=== PATIENT | male | born 1985 | race Caucasian/White ===

== ENCOUNTER 2017-02-09 08:45 | Emergency (ER) | payer BC ==
[~2017-02-09] VITALS: Ht 180.3 cm; Wt 80.7 kg
[2017-02-09] MEDS ORDERED: ACETAMINOPHEN 500 MG TABLET PO ONE (09:15)
[2017-02-09] MEDS ORDERED: ONDANSETRON PF 4 MG/2 ML VIAL. IV ONE (09:15)
[2017-02-09] MEDS ORDERED: IV NORMAL SALINE 1000ML BAG 1,000 ML IV ONE (09:15)
--- NOTE | 2017-02-09 09:20 | PHYS DOC ---
Adult General Chief Complaint Chief Complaint: FEVER HPI HPI Patient is a 31 year old male with history of asthma who presents today complaining of fevers on and off for the last 2 weeks. Patient is also complaining of nausea vomiting, diarrhea and generalized abd pain that began a couple days ago. Patient states initially he developed a fever 2 weeks ago. He states he had a cough with it. He states he was seen by the PCP and was diagnosed with possible pneumonia and was put on antibiotics. He states his symptoms did not improve. He states he went to urgent care on Wednesday this week for the same complaint. He states he put him on azithromycin. He states his symptoms have not improved. He states he also has a slight headache generalized in nature. Patient denies this being the worst headache in his life. Patient is also complaining of fatigue for the last 2 weeks. Patient denies any sore throat. Patient states he took an antiepileptic last night. He is also complaining of generalized malaise and neck pain for the last couple days. He states his neck pain is from him laying down in the bed for couple days. Review of Systems Review of Systems Constitutional: Fever and fatigue Eyes: Denies change in visual acuity, redness, or eye pain [] HENT: Denies nasal congestion or sore throat [] Respiratory: Denies cough or shortness of breath [] Cardiovascular: No additional information not addressed in HPI [] GI: abdominal pain, nausea, diarrhea [] : Denies dysuria or hematuria [] Musculoskeletal: Denies back pain or joint pain [] Integument: Denies rash or skin lesions [] Neurologic: headache Endocrine: Denies polyuria or polydipsia [] Current Medications Current Medications Current Medications Medications (Trade) Dose Ordered Sig/Eloisa Start Time Stop Time Status Last Admin Dose Admin Acetaminophen (Tylenol) 1,000 mg 1X ONCE 02/09/17 09:15 02/09/17 09:19 DC 02/09/17 09:25 1,000 MG Info (Do NOT chart on this entry -- for MONITORING) 1 each PRN DAILY PRN 02/09/17 13:00 02/11/17 12:59 Iohexol (Omnipaque 300 Mg/ml) 75 ml 1X ONCE 02/09/17 13:00 02/09/17 13:01 DC 02/09/17 12:57 75 ML Ondansetron HCl (Zofran) 4 mg 1X ONCE 02/09/17 09:15 02/09/17 09:19 DC 02/09/17 09:24 4 MG Sodium Chloride (Iv Sodium Chloride 0.9% 1000ml Bag) 1,000 ml @ 1,000 mls/hr 1X ONCE 02/09/17 09:15 02/09/17 10:14 DC 02/09/17 09:24 1,000 MLS/HR Allergies Allergies Allergies Coded Allergies Type Severity Reaction Last Updated Verified No Known Drug Allergies 02/09/17 No Physical Exam Physical Exam Constitutional: Well developed, well nourished, no acute distress, non-toxic appearance. [] HENT: Normocephalic, atraumatic, bilateral external ears normal, oropharynx moist, no oral exudates, nose normal. [] Eyes: PERRLA, EOMI, conjunctiva normal, no discharge. [] Neck: Normal range of motion, no tenderness, supple, no stridor. [] Cardiovascular:Heart rate regular rhythm, no murmur [] Lungs & Thorax: Bilateral breath sounds clear to auscultation [] Abdomen: Bowel sounds normal, soft, no tenderness, no masses, no pulsatile masses. [] Skin: Warm, dry, no erythema, no rash. [] Back: No tenderness, no CVA tenderness. [] Extremities: No tenderness, no cyanosis, no clubbing, ROM intact, no edema. [] Neurologic: Alert and oriented X 3, normal motor function, normal sensory function, no focal deficits noted. [] Psychologic: Affect normal, judgement normal, mood normal. [] Current Patient Data Vital Signs Vital Signs Date Time Temp Pulse Resp B/P Pulse Ox O2 Delivery O2 Flow Rate FiO2 02/09/17 09:50 74 18 134/72 95 Room Air 02/09/17 09:00 99.5 99.5 Lab Values Laboratory Tests Test 02/09/17 09:14 02/09/17 11:47 02/09/17 11:50 02/09/17 12:14 White Blood Count 6.5x10^3/uL (4.0-11.0) Red Blood Count 5.10x10^6/uL (4.30-5.70) Hemoglobin 14.8g/dL (13.0-17.5) Hematocrit 42.0% (39.0-53.0) Mean Corpuscular Volume 82fL (79-100) Mean Corpuscular Hemoglobin 29pg (25-35) Mean Corpuscular Hemoglobin Concent 35g/dL (31-37) Red Cell Distribution Width 12.0% (11.5-14.5) Platelet Count 189x10^3/uL (140-400) Neutrophils (%) (Auto) 50% (31-73) Lymphocytes (%) (Auto) 37% (24-48) Monocytes (%) (Auto) 11% (0-9) H Eosinophils (%) (Auto) 2% (0-3) Basophils (%) (Auto) 1% (0-3) Neutrophils # (Auto) 3.2x10^3uL (1.8-7.7) Lymphocytes # (Auto) 2.4x10^3/uL (1.0-4.8) Monocytes # (Auto) 0.7x10^3/uL (0.0-1.1) Eosinophils # (Auto) 0.1x10^3/uL (0.0-0.7) Basophils # (Auto) 0.0x10^3/uL (0.0-0.2) Prothrombin Time 13.2SEC (11.7-14.0) Prothrombin Time INR 1.1 (0.8-1.1) PTT 36SEC (24-38) Sodium Level 135mmol/L (136-145) L Potassium Level 3.8mmol/L (3.5-5.1) Chloride Level 97mmol/L (98-107) L Carbon Dioxide Level 29mmol/L (21-32) Anion Gap 9 (6-14) Blood Urea Nitrogen 8mg/dL (8-26) Creatinine 1.2mg/dL (0.7-1.3) Estimated GFR (Cockcroft-Gault) 71.6 BUN/Creatinine Ratio 7 (6-20) Glucose Level 101mg/dL (70-99) H Calcium Level 9.0mg/dL (8.5-10.1) Total Bilirubin 0.9mg/dL (0.2-1.0) Aspartate Amino Transferase (AST) 69U/L (15-37) H Alanine Aminotransferase (ALT) 102U/L (16-63) H Alkaline Phosphatase 71U/L (46-116) Total Protein 8.2g/dL (6.4-8.2) Albumin 3.5g/dL (3.4-5.0) Albumin/Globulin Ratio 0.7 (1.0-1.7) L Lipase 111U/L (73-393) Heterophil Agglutinins Negative (NEGATIVE) Influenza Type A Antigen Negative (NEGATIVE) Influenza Type B Antigen Negative (NEGATIVE) Group A Streptococcus Rapid Negative (NEGATIVE) Urine Collection Type Unknown Urine Color Yellow Urine Clarity Clear Urine pH 5.5 Urine Specific Tolar 1.015 Urine Protein Negativemg/dL (NEG-TRACE) Urine Glucose (UA) Negativemg/dL (NEG) Urine Ketones (Stick) 15mg/dL (NEG) Urine Blood Negative (NEG) Urine Nitrite Negative (NEG) Urine Bilirubin Negative (NEG) Urine Urobilinogen Dipstick 0.2mg/dL (0.2 mg/dL) Urine Leukocyte Esterase Trace (NEG) Urine RBC 0/HPF (0-2) Urine WBC 0/HPF (0-4) Urine Squamous Epithelial Cells Few/LPF Urine Bacteria 0/HPF (0-FEW) Urine Mucus Mod/LPF Laboratory Tests 02/09/17 09:14 Laboratory Tests 02/09/17 09:14 EKG EKG [] Radiology/Procedures Radiology/Procedures [] Course & Med Decision Making Course & Med Decision Making Pertinent Labs and Imaging studies reviewed. (See chart for details) This is a well-appearing 31 year old male patient who presents to the ED with complaints of fever intermittently for 2 weeks. Patient is on his second round of antibiotics which she received from urgent care on Wednesday. He is already been seen by the primary care doctor and took antibiotics a week ago. Patient's also complaining of coughing. Patient's also complaining of vomiting and diarrhea. He is also complaining of generalized abdominal pain. CBC with no acute findings, CMP with AST of 69 and ALT of 102. Urine analysis is negative for infection. On arrival his temperature was 99.5. He was given antipyretic. Negative influenza A or B, negative strep infection. Negative for mono. Chest x- ray was negative for any acute findings. CT of the abdomen and pelvic was negative for any acute findings but noted for splenomegaly. Patient was cautioned not to participate in any contact sports. Recommended he follows up with the PCP in a week. Provided return precautions and discharged in stable condition. Dragon Disclaimer Dragon Disclaimer This electronic medical record was generated, in whole or in part, using a voice recognition dictation system. Departure Departure Impression: Primary Impression: Fever of unknown origin Additional Impressions: Cough Nausea and vomiting Diarrhea Disposition: 01 HOME, SELF-CARE Condition: STABLE Patient Instructions: Diarrhea, Fever, Child, Nausea and Vomiting Additional Instructions: You were seen for ongoing fevers. We were not able to find the actual cause for the fever. Please take ibuprofen as needed for fever. Your liver enzymes are slightly elevated and this could come from taking Tylenol. Avoid taking Tylenol. Follow-up with your primary care doctor in the next 2-3 days. Come back to the ED if symptoms worsen. Scripts Ondansetron (Zofran Odt)4 Mg Tab.rapdis1 Tab SL Q8HRS #15 TAB Prov:INÉS ESPITIA APRN 02/09/17 Problem Qualifiers Additional Impressions: Nausea and vomiting Vomiting type: unspecified Vomiting Intractability: unspecified Qualified Code: R11.2 - Nausea with vomiting, unspecified Diarrhea Diarrhea type: unspecified type Qualified Code: R19.7 - Diarrhea, unspecified INÉS ESPITIA APRN Feb 09, 2017 09:20
[2017-02-09 09:38] LABS: BASO % 1 % (0-3); EOS % 2 % (0-3); HEMOGLOBIN 14.8 g/dL (13.0-17.5); LYMPH # 2.4 x10^3/uL (1.0-4.8); LYMPH % 37 % (24-48); MEAN CORPUSCULAR HEMOGLOBIN 29 pg (25-35); MEAN CORPUSCULAR HGB CONC 35 g/dL (31-37); MEAN CORPUSCULAR VOLUME 82 fL (79-100); MONO % 11 % (0-9); NEUT % 50 % (31-73); PLATELET COUNT 189 x10^3/uL (140-400); WHITE BLOOD COUNT 6.5 x10^3/uL (4.0-11.0)
[2017-02-09 09:40] LABS: CREATININE 1.2 mg/dL (0.7-1.3); GFR 71.6; POTASSIUM 3.8 mmol/L (3.5-5.1)
[2017-02-09 09:42] LABS: ALBUMIN 3.5 g/dL (3.4-5.0); ALBUMIN/GLOBULIN RATIO 0.7 (1.0-1.7); TOTAL BILIRUBIN 0.9 mg/dL (0.2-1.0); TOTAL PROTEIN 8.2 g/dL (6.4-8.2)
[2017-02-09 09:54] LABS: NEGATIVE OBC MONO NEG; POSITIVE OBC MONO POS
[2017-02-09 09:55] LABS: INR 1.1 (0.8-1.1); PROTHROMBIN TIME PATIENT 13.2 SEC (11.7-14.0)
--- NOTE | 2017-02-09 10:17 | ACF ---
Admit Criteria Forms Admit Criteria Forms Admit Criteria Forms FEVER Clinical Indications for Inpatient Care (Place 'X' for any and all applicable criteria): Ongoing inpatient care may be indicated for fever with ANY ONE of the following[ D] (5)(27)(28)(29)(30)(31): [ ]I. Bacteremia [ ]II. Evidence of significant systemic illness as indicated by ANY ONE of the following: [ ]a) Persistently high temperatures greater than 103.1 degrees F ( 39.5 degrees C) (oral) [ ]b) New-onset hypoxia [ ]c) Hemodynamic instability [ ]d) Mental status changes [ ]e) Decreased urine output due to developing renal insufficiency [ ]f) New focal neurologic deficit (eg, stroke) [ ]g) Seizures [ ]h) Rigors [ ]i) Dehydration or hypovolemia [ ]j) Inadequate oral intake [X]III. Patient in the immediate postoperative period with ANY ONE of the following (E)(23)(24): [ ]a) Evidence of specific localizing infection requiring ongoing inpatient evaluation or treatment (eg,abscess, severe pneumonia, wound infection ) [X]b) Known or suspected cause of fever requiring ongoing inpatient evaluation or treatment (eg, DVT) [ ]c) Evidence of malignant hyperthermia (eg, unexplained tachycardia and muscle rigidity after depolarizing muscular blocking agent or inhaled anesthetic agent) [ ]IV. Suspected cause requiring acute care (eg, endocarditis, meningitis) [ ]V. High suspicion of bacteremia as indicated by severe constitutional symptoms in patient at high risk as indicated by ANY ONE of the following: [ ]a) Immunocompromised state [D](22) [ ]b) Age <3 years or >65 years [ ]c) Severe comorbidities (eg, poorly controlled diabetes, severe COPD) [ ]. High suspicion for fungal infection as indicated by ANY ONE of the following (22)(25): [ ]a) Febrile neutropenia (WBC <500/mm3 (0.5 X 109/L)) for >4 days despite broad spectrum antibiotics [ ]b) Imaging findings suggestive of fungal infection [ ]c) Immunocompromised state [ ]d) Immunocompromised patient colonized with Aspergillus species [ ]VII. Evidence of infection of medical devices such as implanted catheters or exposed hardware [ ]VIII. Suspected neuroleptic malignant syndrome as evidenced by ALL of the following (15): [ ]a) Recent use of neuroleptic medication (eg, haloperidol, prochlorperazine, metoclopramide) [ ]b) New-onset muscle rigidity Extended stay beyond goal length of stay for primary condition may be needed until ALL of the following are present(16)(17)(18)(19)(20)(21): [ ]a) Temperature status acceptable as indicated by ANY ONE of the following: [ ]i) Temp <38.1C (100.5 F) (oral) [ ]ii) Temp as expected for disease process and care performable at next level of care [ ]b) Hemodynamic stability [ ]c) Cultures negative or infection identified and under adequate treatment [ ]d) Behavior or mental status abnormalities absent or manageable at lower level of care (Also use Mental Status Change Criteria Form) for further information. [ ]e) Medical comorbidities absent or manageable at a lower level of care The original [facility] content created by [employer] has been revised. The portions of the content which have been revised are identified through the use of italic text or in bold, and [facility] has neither reviewed nor approved the modified material. All other unmodified content is copyright [facility]. Please see references footnoted in the original [facility] edition 2016 BJ PIERRE Feb 09, 2017 10:17
--- NOTE | 2017-02-09 10:59 | RAD ---
Exam: PA and lateral chest radiograph History: Fever for 2 weeks, cough. Comparison: None. Findings: Cardiomediastinal silhouette is within normal limits for size. Bilateral lung padron are free of focal infiltrate. No pleural effusion is seen. Impression: No acute cardiopulmonary process.
[2017-02-09 12:17] LABS: OBC FLU VALID
[2017-02-09 12:29] LABS: NEGATIVE OBC STREP NEG; POSITIVE OBC STREP POS
[2017-02-09 12:36] LABS: BACTERIA,URINE 0 /HPF (0-FEW); BILIRUBIN,URINE NEGATIVE (NEG); GLUCOSE,URINE NEGATIVE (NEG); NITRITE,URINE NEGATIVE (NEG); PH,URINE 5.5; PROTEIN,URINE NEGATIVE (NEG-TRACE); RBC,URINE 0 /HPF (0-2); SQUAMOUS EPITHELIAL CELL,UR FEW /LPF; UROBILINOGEN,URINE 0.2 mg/dL (0.2 mg/dL); WBC,URINE 0 /HPF (0-4)
[2017-02-09] MEDS ORDERED: CONTRAST GIVEN MC PRN (13:00)
[2017-02-09] MEDS ORDERED: IOHEXOL 300 MG/ML 75 ML VIAL IV ONE (13:00)
--- NOTE | 2017-02-09 14:04 | RAD ---
CT abdomen and pelvis with IV contrast History: Nausea, vomiting, abdominal pain, fever. Comparison: None. Technique: After administration of intravenous contrast, 75 mL Omnipaque 300, helical CT of the abdomen and pelvis was performed from the lung bases through the ischial tuberosities. Axial, sagittal, and coronal reconstructions were obtained. One or more of the following individualized dose reduction techniques were utilized for the study: Automated exposure control Adjustment of mA and/or kV according to patient's size Use of iterative reconstruction technique. Findings: Evaluation of enteric structures may be limited by lack of oral contrast. Fatty liver disease is seen. Spleen is enlarged measuring 15.0 cm in craniocaudal dimension. Pancreas, gallbladder, and bilateral adrenal glands are unremarkable. Bilateral kidneys enhance symmetrically. There is no evidence of bowel obstruction. No free air or free fluid is identified in the abdomen or pelvis. Appendix appears within normal limits. Urinary bladder is unremarkable. Impression: 1. No acute abnormality identified in the abdomen or pelvis. 2. Splenomegaly.
[2017-02-09 14:30] VITALS: BP 130/78
[2017-02-09] MEDS ORDERED: ONDA4TAB10 SL (14:48)
== END 2017-02-09 14:52 | disposition home or self-care (01) ==
LOC: ER 08:45
DX: R50.9 Fever, unspecified (principal); R11.2 Nausea with vomiting, unspecified; R19.7 Diarrhea, unspecified; R05 Cough; M54.2 Cervicalgia; R10.84 Generalized abdominal pain; J45.909 Unspecified asthma, uncomplicated; R53.83 Other fatigue; R16.1 Splenomegaly, not elsewhere classified
CPT/HCPCS: 36415; 71020; 74177; 80053; 81001; 83690; 85027; 85610; 85730; 86308; 87040; 87070; 87804; 87880; 96361; 96374; 99285; J2405; J7030; Q9967

== ENCOUNTER 2020-09-21 10:20 | Emergency (ER) | payer BC, OTHER ==
[~2020-09-21] VITALS: Ht 180.3 cm; Wt 73.0 kg
[~2020-09-21 10:20] MED LIST: ONDA4TAB10 SL
[2020-09-21] MEDS ORDERED: IV NORMAL SALINE 1000ML BAG 1,000 ML IV SCH (10:45)
[2020-09-21] MEDS ORDERED: ONDANSETRON PF 4 MG/2 ML VIAL. IVP ONE (10:45)
[2020-09-21 11:04] LABS: BASO % 1 % (0-3); EOS # 0.1 x10^3/uL (0.0-0.7); EOS % 1 % (0-3); HEMATOCRIT 47.3 % (39.0-53.0); HEMOGLOBIN 16.2 g/dL (13.0-17.5); LYMPH # 1.6 x10^3/uL (1.0-4.8); LYMPH % 26 % (24-48); MEAN CORPUSCULAR HEMOGLOBIN 30 pg (25-35); MEAN CORPUSCULAR HGB CONC 34 g/dL (31-37); MEAN CORPUSCULAR VOLUME 87 fL (79-100); MONO # 0.6 x10^3/uL (0.0-1.1); MONO % 10 % (0-9); NEUT # 3.9 x10^3/uL (1.8-7.7); NEUT % 63 % (31-73); PLATELET COUNT 204 x10^3/uL (140-400); RED BLOOD COUNT 5.42 x10^6/uL (4.30-5.70); RED CELL DISTRIBUTION WIDTH 12.8 % (11.5-14.5); WHITE BLOOD COUNT 6.2 x10^3/uL (4.0-11.0)
[2020-09-21 12:00] VITALS: BP 162/100
--- NOTE | 2020-09-21 12:10 | PHYS DOC ---
Past Medical History Past Medical History: Anxiety, Asthma, Hypertension Additional Past Medical Histor: Has not used an inhaler, "In years." Past Surgical History: No Surgical History Smoking Status: Never Smoker Alcohol Use: Heavy Additional Information: PT STATES HE DRINKS HEAVILY DAILY, 12 PK OF BEER PER DAY OR "THE EQUIVILANT" IN [place]QU[place]. Drug Use: None General Adult EDM: Chief Complaint: NAUSEA/VOMITING/DIARRHA HPI: HPI: Patient is a 35 year old male who presented to ER for evaluation of epigastric abdominal pain associate with nausea vomiting for the last 6 days. Patient is an alcoholic, he has tried to stop drinking 2 days ago. He did not feel so well last night so he start drinking again last night. Patient complained of cramping all over. Patient denies any diarrhea, no fever, no chest pain, no cough. Review of Systems: Review of Systems: Constitutional: Denies fever or chills. [] Eyes: Denies change in visual acuity. [] HENT: Denies nasal congestion or sore throat. [] Respiratory: Denies cough or shortness of breath. [] Cardiovascular: Denies chest pain or edema. [] GI: Positive for abdominal pain, nausea, vomiting, NO bloody stools or diarrhea. [] : Denies dysuria. [] Musculoskeletal: Denies back pain , POSITIVE FOR MUSCLE CRAMPING. Integument: Denies rash. [] Neurologic: Denies headache, focal weakness or sensory changes. [] Endocrine: Denies polyuria or polydipsia. [] Lymphatic: Denies swollen glands. [] Psychiatric: Denies depression or anxiety. [] Heart Score: Risk Factors: Risk Factors: DM, Current or recent (<one month) smoker, HTN, HLP, family history of CAD, obesity. Risk Scores: Score 0 - 3: 2.5% MACE over next 6 weeks - Discharge Home Score 4 - 6: 20.3% MACE over next 6 weeks - Admit for Clinical Observation Score 7 - 10: 72.7% MACE over next 6 weeks - Early Invasive Strategies Current Medications: Current Medications Medications (Trade) Dose Ordered Sig/Eloisa Start Time Stop Time Status Last Admin Dose Admin Lorazepam (Ativan Inj) 2 mg 1X ONCE 09/21/20 12:30 09/21/20 12:31 Morphine Sulfate (Morphine Sulfate) 2 mg 1X ONCE 09/21/20 12:30 12/20 12:31 Ondansetron HCl (Zofran) 4 mg 1X ONCE 09/21/20 10:45 09/21/20 10:46 DC 09/21/20 10:57 4 MG Sodium Chloride 1,000 ml @ 1,000 mls/hr 1X ONCE 09/21/20 12:30 09/21/20 13:29 Allergies: Allergies: Allergies Coded Allergies Type Severity Reaction Last Updated Verified No Known Drug Allergies 02/09/17 No Physical Exam: PE: Constitutional: Well developed, well nourished, MILD acute distress, non-toxic appearance. [] HENT: Normocephalic, atraumatic, bilateral external ears normal, oropharynx moist, no oral exudates, nose normal. [] Eyes: PERRLA, EOMI, conjunctiva normal, no discharge. [] Neck: Normal range of motion, no tenderness, supple, no stridor. [] Cardiovascular:Heart rate regular rhythm, no murmur [] Lungs & Thorax: Bilateral breath sounds clear to auscultation [] Abdomen: Bowel sounds normal, soft, tenderness TO PALPATION IN EPIGASTRIC ARE, no masses, no pulsatile masses. [] Skin: Warm, dry, no erythema, no rash. [] Back: No tenderness, no CVA tenderness. [] Extremities: No tenderness, no cyanosis, no clubbing, ROM intact, no edema. [] Neurologic: Alert and oriented X 3, normal motor function, normal sensory function, no focal deficits noted. [] Psychologic: APPEARED ANXIOUS AND SHAKY, NO SI, NO HI. Current Patient Data: Labs: Laboratory Tests Test 09/21/20 10:50 White Blood Count 6.2 x10^3/uL (4.0-11.0) Red Blood Count 5.42 x10^6/uL (4.30-5.70) Hemoglobin 16.2 g/dL (13.0-17.5) Hematocrit 47.3 % (39.0-53.0) Mean Corpuscular Volume 87 fL (79-100) Mean Corpuscular Hemoglobin 30 pg (25-35) Mean Corpuscular Hemoglobin Concent 34 g/dL (31-37) Red Cell Distribution Width 12.8 % (11.5-14.5) Platelet Count 204 x10^3/uL (140-400) Neutrophils (%) (Auto) 63 % (31-73) Lymphocytes (%) (Auto) 26 % (24-48) Monocytes (%) (Auto) 10 % (0-9) H Eosinophils (%) (Auto) 1 % (0-3) Basophils (%) (Auto) 1 % (0-3) Neutrophils # (Auto) 3.9 x10^3/uL (1.8-7.7) Lymphocytes # (Auto) 1.6 x10^3/uL (1.0-4.8) Monocytes # (Auto) 0.6 x10^3/uL (0.0-1.1) Eosinophils # (Auto) 0.1 x10^3/uL (0.0-0.7) Basophils # (Auto) 0.0 x10^3/uL (0.0-0.2) Laboratory Tests 09/21/20 10:50 Vital Signs: Vital Signs Date Time Temp Pulse Resp B/P (MAP) Pulse Ox O2 Delivery O2 Flow Rate FiO2 09/21/20 10:27 98.6 110 18 158/109 (125) 100 Room Air 98.6 EKG: EKG: [] Radiology/Procedures: Radiology/Procedures: [][facility] [address] [place] [address] IMAGING REPORT Signed PATIENT: FRANCO MCINTYRE ACCOUNT: [id number] : 1985 LOCATION: ER AGE: 35 SEX: M EXAM STATUS: REG ER ORD. PHYSICIAN: VINNY DUNCAN DO REASON: abdominal pain PROCEDURE: CT ABD PELV W/ IV CONTRST ONLY CT SCAN OF THE ABDOMEN AND PELVIS WITH IV CONTRAST. History: Reason: abdominal pain Comparison:February 09, 2017. Procedure: Contiguous axial images of the abdomen and pelvis were performed after the administration of 75 cc of Omni 300 IV contrast. Oral contrast: No. Findings: The gallbladder appears normal. The appendix is normal. There is a small fat-containing inguinal canal hernia on the right. Liver: Diffusely hypoattenuating Spleen: Unremarkable Pancreas: Unremarkable Adrenal Glands: Unremarkable Kidneys: Unremarkable There is no mass or lymphadenopathy. There is no free air. There is no free fluid. The urinary bladder appears normal. Impression: 1. Fatty infiltration liver. 2. No acute findings. End impression PQRS Compliance Statement: One or more of the following individualized dose reduction techniques were utilized for this examination: 1. Automated exposure control 2. Adjustment of the mA and/or kV according to patient size 3. Use of iterative reconstruction technique Electronically signed by: Jessi Mcdoanld III, MD (09/21/2020 1:26 PM) [facility] DICTATED and SIGNED BY: JESSI MCDONALD III, MD DATE: 09/21/20 [id number] 0 Course & Med Decision Making: Course & Med Decision Making Pertinent Labs and Imaging studies reviewed. (See chart for details) Patient is not interested in inpatient detox at this time, AVELINO with the PAT team gave patient resource for detox center that he can call if he changes his mind. Patient denies suicidal ideation, denies homicidal ideation. Patient was given IV fluid and IV Ativan in the ER, he feels much better. Dragon Disclaimer: Dragsarita Disclaimer: This electronic medical record was generated, in whole or in part, using a voice recognition dictation system. Departure Departure Impression: Primary Impression: Alcohol withdrawal Additional Impression: Abdominal pain Disposition: 01 DC HOME SELF CARE/HOMELESS Condition: IMPROVED Referrals: NO PCP (PCP) follow up with your doctor this week . Patient Instructions: Abdominal Pain, Alcohol Withdrawal Additional Instructions: Thank you for visiting our Emergency Department. We appreciate you trusting us with your care. If any additional problems come up don't hesitate to return to visit us. Please follow up with your primary care provider so they can plan additional care if needed and know about the problem that you had. If symptoms worsen come back to the Emergency Department. Any concerning symptoms that start such as chest pain, shortness of air, weakness or numbness on one side of the body, running high fevers or any other concerning symptoms return to the ER. Scripts Ondansetron Hcl (ZOFRAN) 4 Mg Tablet 1 TAB PO Q6HRS PRN for NAUSEA, #20 TAB Prov: VINNY DUNCAN DO 09/21/20 VINNY DUNCAN DO Sep 21, 2020 12:10
[2020-09-21 12:23] LABS: CALCIUM 10.5 mg/dL (8.5-10.1); CREATININE 0.9 mg/dL (0.7-1.3); GFR 97.2; POTASSIUM 3.7 mmol/L (3.5-5.1)
[2020-09-21 12:28] LABS: ALBUMIN 4.2 g/dL (3.4-5.0); ALBUMIN/GLOBULIN RATIO 1.1 (1.0-1.7); MAGNESIUM 1.8 mg/dL (1.8-2.4); TOTAL BILIRUBIN 1.7 mg/dL (0.2-1.0)
[2020-09-21] MEDS ORDERED: MORPHINE SULFATE 2 MG/ML VIAL. IV ONE (12:30)
[2020-09-21] MEDS ORDERED: IV NORMAL SALINE 1000ML BAG 1,000 ML IV ONE (12:30)
[2020-09-21 12:33] LABS: ACETAMIN < 2 mcg/ml (10-30)
[2020-09-21 12:34] LABS: ETHANOL < 10 mg/dL (0-10); SALIC < 2.8 mg/dL (2.8-20.0)
[2020-09-21] MEDS ORDERED: CONTRAST GIVEN. MC PRN (13:15)
--- NOTE | 2020-09-21 13:29 | RAD ---
CT SCAN OF THE ABDOMEN AND PELVIS WITH IV CONTRAST. History: Reason: abdominal pain Comparison:February 09, 2017. Procedure: Contiguous axial images of the abdomen and pelvis were performed after the administration of 75 cc of Omni 300 IV contrast. Oral contrast: No. Findings: The gallbladder appears normal. The appendix is normal. There is a small fat-containing inguinal canal hernia on the right. Liver: Diffusely hypoattenuating Spleen: Unremarkable Pancreas: Unremarkable Adrenal Glands: Unremarkable Kidneys: Unremarkable There is no mass or lymphadenopathy. There is no free air. There is no free fluid. The urinary bladder appears normal. Impression: 1. Fatty infiltration liver. 2. No acute findings. End impression PQRS Compliance Statement: One or more of the following individualized dose reduction techniques were utilized for this examination: 1. Automated exposure control 2. Adjustment of the mA and/or kV according to patient size 3. Use of iterative reconstruction technique Electronically signed by: Jerman Mcdonald III, MD (09/21/2020 1:26 PM) [facility]
[2020-09-21] MEDS ORDERED: IOHEXOL 300 MG/ML 100ML VIAL. IV ONE (13:30)
[2020-09-21] MEDS ORDERED: ONDA4TAB7 PO (15:19)
== END 2020-09-21 15:40 | disposition home or self-care (01) ==
LOC: ER 10:20
DX: F10.139 Alcohol abuse with withdrawal, unspecified (principal); R10.13 Epigastric pain; R11.2 Nausea with vomiting, unspecified; F41.9 Anxiety disorder, unspecified; J45.909 Unspecified asthma, uncomplicated; I10 Essential (primary) hypertension
CPT/HCPCS: 36415; 74177; 80053; 80329; 83690; 83735; 85025; 96361; 96374; 96375; 96376; 99285; G0480; J2060; J2270; J2405; J7030; Q9967